=== PATIENT | male | born 1970 | race Caucasian/White ===

== ENCOUNTER 2018-10-11 03:18 | Emergency (ER) | payer SELFPAY ==
[~2018-10-11] VITALS: Ht 180.3 cm; Wt 81.0 kg
[2018-10-11 03:23] VITALS: BP 159/103
[2018-10-11] MEDS ORDERED: AMLODIPINE (03:35)
[2018-10-11] MEDS ORDERED: LIDOCAINE-MPF 1%, 5ML INFIL ONE (04:00)
[2018-10-11] MEDS ORDERED: DIPH,PERTUSS(ACELL),TET VAC/PF 0.5 ML IM-VACC ONE (04:00)
--- NOTE | 2018-10-11 04:00 | NUR ---
PT STATED HE DID NOT WANT TO WAIT FOR THE DOCTOR TO SUTURE HIS SCALP. PT REFUSED CT, STATED HE DOESN'T NEED A CT. PT INFORMED ABOUT THE NEED FOR A CT. PT STATED HE STILL DID NOT WANT CT. PT STATED HE FEELS FINE. PT HAS BEEN A&OX4 SINCE ARRIVAL, PT STEADY ON HIS FEET. PT AWARE HIS WOUND REQUIRES SUTURES. PT REFUSED TO STAY. REVIEWED AMA FORM WITH PT. PT AWARE HE CAN RETURN ANYTIME. PT STATED HE NEVER WANTED TO COME IN THE FIRST PLACE. 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
== END 2018-10-11 04:00 | disposition left against medical advice (07) ==
LOC: ED 03:54
DX: S06.0X0A Concussion without loss of consciousness, initial encounter (principal); S01.01XA Laceration without foreign body of scalp, initial encounter; W01.0XXA Fall on same level from slipping, tripping and stumbling without subsequent striking against object, initial encounter; Y93.89 Activity, other specified; Y92.89 Other specified places as the place of occurrence of the external cause; Y99.8 Other external cause status
CPT/HCPCS: 99283